=== PATIENT | female | born 1960 | race Caucasian/White ===

== ENCOUNTER 2021-03-12 01:49 | Emergency (ER) | payer OTHER ==
[~2021-03-12] VITALS: Ht 167.6 cm; Wt 57.0 kg
[2021-03-12 03:13] LABS: CLARITY,URINE SLIGHTLY CLOUDY (Clear); COLOR,URINE YELLOW (Yellow); GLUCOSE, URINE NEGATIVE (Neg); KETONES,URINE 15 mg/dl (Neg); LEUKOCYTE ESTERASE ,URINE NEGATIVE (Neg); NITRITES, URINE NEGATIVE (Neg); OCCULT BLOOD,URINE NEGATIVE (Neg); PH,URINE 5.5 (4.8-8.0); PROTEIN,URINE TRACE mg/dl (Neg)
[2021-03-12 03:20] LABS: UA COLLECTION TYPE CLN CATCH MIDSTREAM
[2021-03-12 03:26] LABS: BASOPHILS % (AUTO) 0.7 % (0-1); EOSINOPHILS # (AUTO) 0.1 X10'3 (0-0.9); HEMATOCRIT 39.6 % (35.0-45.0); HEMOGLOBIN 13.4 g/dl (12.0-16.0); LYMPHOCYTES # (AUTO) 2.9 X10'3 (1.1-4.8); LYMPHOCYTES % (AUTO) 41.4 % (21-51); MEAN CORPUSCULAR HEMOGLOBIN 30.8 PG (27.0-31.0); MEAN CORPUSCULAR HGB CONC 33.9 g/dL (33.0-36.5); MEAN CORPUSCULAR VOLUME 90.9 FL (78-98); MEAN PLATELET VOLUME 7.7 FL (7.4-10.4); MONOCYTES # (AUTO) 0.8 X10'3 (0-0.9); MONOCYTES % (AUTO) 10.9 % (2-12); NEUTROPHILS # (AUTO) 3.2 X10'3 (1.8-7.7); PLATELET COUNT 309 X10'3 (140-440); RED BLOOD COUNT 4.36 X10'6 (4.20-5.60); RED CELL DISTRIBUTION WIDTH 13.5 % (11.5-14.5)
[2021-03-12 03:27] LABS: RBC,URINE NONE SEEN /HPF (0-2); WBC,URINE 0-4 /HPF (0-4)
[2021-03-12 03:28] LABS: BACTERIA,URINE 1+ /HPF (Neg); MUCUS STRANDS MODERATE /LPF (Neg); SQUAMOUS EPITHELIAL CELL,UR MODERATE /LPF (FEW)
[2021-03-12 03:37] LABS: ALANINE AMINOTRANSFERASE 35 U/L (12-78); ALBUMIN 4.1 G/DL (3.4-5.0); ALBUMIN/GLOBULIN RATIO 1.2 (1.1-1.5); ALKALINE PHOSPHATASE 62 IU/L (46-116); ANION GAP 11 (8-16); ASPARTATE AMINO TRANSFERASE 30 U/L (10-37); BILIRUBIN,TOTAL 0.5 MG/DL (0.1-1.0); BLOOD UREA NITROGEN 8 MG/DL (7-18); BUN/CREATININE RATIO 8.7 (6.6-38.0); CALCIUM 8.8 MG/DL (8.5-10.1); CHLORIDE 102 MMOL/L (99-107); CREATININE 0.92 MG/DL (0.40-0.90); GLUCOSE 110 MG/DL (70-104); SODIUM 140 MMOL/L (135-145); TOTAL CARBON DIOXIDE 26.6 MMOL/L (24-32); TOTAL PROTEIN 7.5 G/DL (6.4-8.2); eGFR 62 ML/MIN
[2021-03-12 05:35] VITALS: BP 142/78
== END 2021-03-12 05:37 | disposition home or self-care (01) ==
LOC: ER 01:49
DX: R10.31 Right lower quadrant pain (principal); R10.32 Left lower quadrant pain; R11.2 Nausea with vomiting, unspecified; K59.00 Constipation, unspecified; K44.9 Diaphragmatic hernia without obstruction or gangrene; E87.6 Hypokalemia; I10 Essential (primary) hypertension
CPT/HCPCS: 36415; 74176; 80053; 81001; 85025; 87088; 99284

== ENCOUNTER 2021-07-23 05:32 | Day surgery (SDC) | payer OTHER ==
[2021-07-17 14:18] LABS: BASOPHILS % (AUTO) 0.2 % (0-1); EOSINOPHILS % (AUTO) 0.4 % (0-6); LYMPHOCYTES # (AUTO) 1.3 X10'3 (1.1-4.8); LYMPHOCYTES % (AUTO) 14.8 % (21-51); MEAN CORPUSCULAR HEMOGLOBIN 31.3 PG (27.0-31.0); MEAN CORPUSCULAR HGB CONC 34.1 g/dL (33.0-36.5); MONOCYTES # (AUTO) 0.6 X10'3 (0-0.9); MONOCYTES % (AUTO) 6.7 % (2-12); NEUTROPHILS # (AUTO) 6.7 X10'3 (1.8-7.7); NEUTROPHILS % (AUTO) 77.9 % (42-75); PRE OP HEMATOCRIT 39.7 % (35.0-45.0); PRE OP HEMOGLOBIN 13.5 g/dL (12.0-16.0); PRE OP PLATELET COUNT 314 X10'3 (140-440); RED BLOOD COUNT 4.31 X10'6 (4.20-5.60)
[2021-07-17 14:39] LABS: ALBUMIN 3.9 G/DL (3.4-5.0); ALBUMIN/GLOBULIN RATIO 1.1 (1.1-1.5); ALKALINE PHOSPHATASE 66 IU/L (46-116); BLOOD UREA NITROGEN 15 MG/DL (7-18); BUN/CREATININE RATIO 16.5 (6.6-38.0); CALCIUM 8.7 MG/DL (8.5-10.1); CHLORIDE 102 MMOL/L (99-107); CREATININE 0.91 MG/DL (0.40-0.90); PRE OP ALT 17 U/L (30-65); PRE OP ANION GAP 8 (8-16); PRE OP AST 13 U/L (10-37); PRE OP BILIRUB, TOTAL 0.3 MG/DL (0.0-1.0); PRE OP GLUCOSE 149 MG/DL (70-104); PRE OP SODIUM 139 MMOL/L (135-145); TOTAL CARBON DIOXIDE 29.4 MMOL/L (24-32); TOTAL PROTEIN 7.4 G/DL (6.4-8.2); eGFR 62 ML/MIN
[2021-07-17 14:45] LABS: PRE OP POTASSIUM 3.3 MMOL/L (3.4-5.1)
[2021-07-23] VITALS (9 sets, daily range): BP systolic 141–202; BP diastolic 84–113
[~2021-07-23] VITALS: Ht 167.6 cm; Wt 59.1 kg
[~2021-07-23 05:32] MED LIST: ACET-75 PO; CLON0.1T2 PO; ESCI20TA39 PO; TRAM50TA2 PO; cefazolin/dext.iso 2gm/50ml IV ONE; famotidine 20mg tablet PO ONE; ringers solution, lacted 1,000 ML IV SCH
[2021-07-23 06:28] LABS: ISTAT CREATININE 0.8 mg/dL (0.6-1.1); ISTAT HGB 13.6 g/dl (12.0-16.0); ISTAT IONIZED CALCIUM 1.18 mmol/L (1.03-1.32); ISTAT K 3.7 mmol/L (3.5-5.1); POC BUN/CREATININE RATIO 18.8 (6.6-38.0)
[2021-07-23] MEDS ORDERED: LIDOcaine 1% 30ml preserv. free vial ONE (06:49)
[2021-07-23] MEDS ORDERED: BUPIVAcaine 0.5% inj/PF 30 ML ONE (06:49)
[2021-07-23] MEDS ORDERED: midazolam 1 mg/ML 2ml injection ONE (07:25)
[2021-07-23] MEDS ORDERED: meperidine/PF 25mg/ml syringe IV PRN (07:30)
[2021-07-23] MEDS ORDERED: hydrALAZINE 20mg/ml inj. IV PRN (07:30)
[2021-07-23] MEDS ORDERED: morphine 4 MG/ML inj SYRINge IV PRN (07:30)
[2021-07-23] MEDS ORDERED: HYDROmorphone/PF 0.2 MG/ML SYRINGE IV PRN ×2 (07:30)
[2021-07-23] MEDS ORDERED: morphine 2 MG/ML inj. syringe IV PRN (07:30)
[2021-07-23] MEDS ORDERED: ondansetron/PF 4mg/2ml inj IV PRN (07:30)
[2021-07-23] MEDS ORDERED: acetaminophen 1,000mg/100ml IV 100 ML IV PRN (07:30)
[2021-07-23] MEDS ORDERED: labetalol 20mg/4ml (5mg/ml) syringe IV PRN (07:30)
[2021-07-23] MEDS ORDERED: ringers solution, lacted 1,000 ML IV SCH (07:30)
[2021-07-23] MEDS ORDERED: proCHLORperazine 10 MG/2 ml inj IV PRN (07:30)
[2021-07-23] MEDS ORDERED: sevoflurane 250ml liquid IH ONE (07:57)
[2021-07-23] MEDS ORDERED: dexamethasone sod phosphate 10mg/ml inj ONE (07:57)
[2021-07-23] MEDS ORDERED: fentaNYL /PF 50mcg/ml 5ml ampule ONE (08:08)
[2021-07-23] MEDS ORDERED: rocuronium 10mg/ml inj IV ONE (08:27)
[2021-07-23] MEDS ORDERED: LIDOcaine 2% (20mg/ml) 5ml vial ONE (08:27)
[2021-07-23] MEDS ORDERED: propofol inj 20 ML IV ONE (08:27)
[2021-07-23] MEDS ORDERED: ondansetron/PF 4mg/2ml inj ONE (08:27)
[2021-07-23] MEDS ORDERED: labetalol 20mg/4ml (5mg/ml) syringe IV ONE (08:38)
[2021-07-23] MEDS ORDERED: BUPIVAcaine 0.5% inj/PF 30 ml vial IJ ONE (08:44)
[2021-07-23] MEDS ORDERED: neostigmine methylsulfate 1 MG/ML 10ml vial ONE (09:22)
[2021-07-23] MEDS ORDERED: glycopyrrolate 0.2mg/ml inj ONE (09:22)
--- NOTE | 2021-07-23 09:40 | NUR ---
PT ARRIVED TO VIA GURNEY ACCOMPANIED BY DR. ROCK-ANESTHESIA, REPORT GIVEN, PT AWAKE, VSS-BP ELEVATED, PT HAS HX OF HTN-DID NOT TAKE BP MEDS THIS AM, WILL MONITOR, PIV 20G TO RUE-LR RUNNING AT 100ML/HR, LAP SITES X 3 WITH BANDAID-CDI, SCDS ON, DENIES PAIN.
[2021-07-23] MEDS ORDERED: oxyCODONE/APAP 5-325mg tablet PO PRN (09:45)
--- NOTE | 2021-07-23 11:00 | NUR ---
PT UP GETTING DRESSED-TOLERATED WELL, PAIN WELL CONTROLLED WITH MEDS 10/31- I PERCOCET GIVEN, PIV D/CD-CANULA INTACT, SCDS OFF, LAP SITES X 3-CDI, VSS, D/C INSTRUCTIONS GIVEN TO PT-ALL QUESTIONS ANSWERED, PT TAKEN WITH ALL BELONGINGS TO FAMILY CAR VIA W/C, GIVEN RIDE BY FAMILY Addendum: 07/23/21 at 1119 by Herminia Solo RN Amended: Links added.
== END 2021-07-23 11:00 | disposition home or self-care (01) ==
LOC: PAS 05:32
PROVIDERS: ATTEND Surgery
DX: K40.20 Bilateral inguinal hernia, without obstruction or gangrene, not specified as recurrent (principal); K41.20 Bilateral femoral hernia, without obstruction or gangrene, not specified as recurrent; I10 Essential (primary) hypertension; F41.9 Anxiety disorder, unspecified; Z98.890 Other specified postprocedural states; Z79.899 Other long term (current) drug therapy; Z72.89 Other problems related to lifestyle; Z20.822 Contact with and (suspected) exposure to COVID-19; Z82.49 Family history of ischemic heart disease and other diseases of the circulatory system; Z83.3 Family history of diabetes mellitus; Z82.3 Family history of stroke; Z81.8 Family history of other mental and behavioral disorders
CPT/HCPCS: 36415; 49650; 80047; 80053; 82948; 85025; 93005; C1781; J0131; J2001; J2175; J2250; J2270; J2405; J2704; J2710; J3010; U0003; U0005; Z7506; Z7508; Z7512; A4215; A4618; J0690; J1100; J3490; J7120; S0020

== ENCOUNTER 2025-01-22 12:56 | Emergency (ER) | payer MEDICARE, OTHER ==
[~2025-01-22] VITALS: Ht 167.6 cm; Wt 60.6 kg
[~2025-01-22 12:56] MED LIST changes: -TRAM50TA2 PO; -cefazolin/dext.iso 2gm/50ml IV ONE; -famotidine 20mg tablet PO ONE; -ringers solution, lacted 1,000 ML IV SCH
[2025-01-22 13:08] VITALS: TEMP 98.8
--- NOTE | 2025-01-22 13:23 | Physician Documentation ---
History of Present Illness ~ Chief Complaint: Anxiety Stated Complaint: GENERAL ILLNESS Time Seen by MD: 13:05 OK to notify your PCP?: Yes Source: patient, RN/MD, RN notes reviewed, old records Mode of Arrival: POV Exam Limitations: no limitations HPI This patient is a 64 y/o female who presents to ED with chief complaint of anxiety. Patient states that recently she has been having nightmares, and waking up in cold seats. Patient states recent emotional triggers including recently being placed on leave from her job for an injury, which has been frustrating. Patient notes that she has had similar symptoms in the past but they have been significantly worse today. Patient notes she was recently prescribed Baclofen for her injury, however states that when she obtained this prescription, she had fleeting thoughts of taking all the pills in the bottle at once. She does have some intermittent shortness of breath which she describes as feeling as if she has a lump in her throat. Denies any chest pain. Patient denies any other associated symptoms at this time. Patient denies any other alleviating or exacerbating factors. Medication Reconciliation Allergies: Coded Allergies: No Known Allergies (Unverified , 03/12/21) Scheduled Acetaminophen (Acetaminophen), 1 TAB PO QID, (Reported) Clonidine HCl (Clonidine HCl), 2 TAB PO BID, (Reported) Escitalopram Oxalate (Escitalopram Oxalate), 1 TAB PO DAILY, (Reported) Past Medical History Past Medical History: Hypertension, Anxiety Past Surgical History: noncontributory Smoking Status: Unknown if ever smoked Alcohol Use: None Drug Use: none Review of Systems All Other Systems at this time: Reviewed and Negative Physical Exam Vital Signs: RN Vital Signs have been reviewed: Yes, Temperature: 98.8, Source: Oral, Heart Rate: 98, Respiratory Rate: 24, BP: 198/99, Pulse Oximetry: 100, Weight: 60.600 Physical Exam General: The patient is well developed, well nourished, nontoxic appearing and is in no acute distress. Skin: [place], warm and dry with no rashes. HEENT: Head was normocephalic and atraumatic. Eyes - pupils equal, round, reactive to light and accommodation. Extraocular movements were intact. Conjunctivae were nonicteric. The mouth and oropharynx were clear with moist mucous membranes. There were no pharyngeal exudates or erythema. Neck: Supple and nontender. There was no jugular venous distention, lymphadenopathy, thyromegaly or masses. Chest: Clear to auscultation bilaterally without wheezes, rales or rhonchi. No accessory muscle use. No dullness to percussion. Heart: Rate regular and rhythmic. S1, S2. No murmurs. Palpation of the chest wall was normal. No rubs or thrills. Abdomen: Soft, nontender and nondistended. Positive bowel sounds. No guarding o r rebound. No hepatosplenomegaly or palpable masses. Extremities: No cyanosis, clubbing or edema. The patient moves all extr emities. Pulses were equal and symmetric. Neurologic: Cranial nerves II-XII were intact. Sensation was intact to light touch throughout. Motor strength was 5/5 in all four extremities. Deep tendon reflexes were intact in both upper and lower extremities. Psychologic: Patient tearful with disorganized thoughts. The patient was otherwise oriented to person, place and time. The patient demonstrated appropriate judgement and insight. Progress Progress Note RECORD REVIEW: Patient was last seen here on March 12, 2021 for unrelated visit of abdominal pain. Results/Orders Reviewed/noted all lab results: Yes Results/Orders Orders - DANISH HAJI MD Electrocardiogram (01/22/25 13:06) Completed Orders - DANISH HAJI MD Cbc/Diff (01/22/25 13:06) Ethanol (01/22/25 13:06) MG (01/22/25 13:06) Electrocardiogram (01/22/25 13:06) Drug Screen, Urine (01/22/25 13:06) BMP (01/22/25 13:06) Hs Troponin I W Calculations (01/22/25 13:06) Hydroxyzine Tablet (Atarax Tablet) (01/22/25 14:28) Ua W/Microscopic, Cult If Ind (01/22/25 15:33) Medications Received in ER Medications (Trade) Dose Ordered Sig/[place] Route PRN Reason Start Time Stop Time Status Last Admin Dose Admin (Atarax tablet) 25 mg ONCE STAT PO 01/22/25 14:28 01/22/25 14:32 DC 01/22/25 14:38 25 MG Vital Signs 01/22/25 01/22/25 01/22/25 01/22/25 13:08 14:20 14:42 16:36 Temp 98.8 Pulse 98 80 89 Resp 24 17 17 19 B/P (MAP) 198/99 188/90 (122) 176/98 Pulse Ox 100 96 98 O2 Flow Rate 0 Laboratory Tests Test 01/22/25 13:55 01/22/25 15:33 White Blood Count 10.7 Red Blood Count 4.85 Hemoglobin 14.1 Hematocrit 42.6 Mean Corpuscular Volume 87.8 Mean Corpuscular Hemoglobin 29.1 Mean Corpuscular Hemoglobin Concent 33.1 Red Cell Distribution Width 13.6 Platelet Count 326 Mean Platelet Volume 8.3 Neutrophils (%) (Auto) 62.8 Lymphocytes (%) (Auto) 25.4 Monocytes (%) (Auto) 10.5 Eosinophils (%) (Auto) 0.7 Basophils (%) (Auto) 0.6 Neutrophils # (Auto) 6.7 Lymphocytes # (Auto) 2.7 Monocytes # (Auto) 1.1 H Eosinophils # (Auto) 0.1 Basophils # (Auto) 0.1 CBC Comment Sodium Level 141 Potassium Level 4.3 Chloride Level 107 Carbon Dioxide Level 26.6 Anion Gap 7 L Blood Urea Nitrogen 14 Creatinine 0.71 Estimated GFR/1.73 m2 82 BUN/Creatinine Ratio 19.7 Glucose Level 86 Calcium Level 9.2 Magnesium Level 2.5 H Troponin I High Sensitivity 17 Albumin 3.5 Chemistry Comments Ethyl Alcohol Level < 10 Urine Specimen Description Cln catch midstream Urine Color Straw Urine Clarity Clear Urine pH 6.5 Urine Specific [place] <=1.005 Urine Protein Negative Urine Glucose (UA) Negative Urine Ketones Negative Urine Occult Blood Trace-intact Urine Nitrite Negative Urine Bilirubin Negative Urine Urobilinogen 0.2 Urine Leukocyte Esterase Negative Urine RBC 0-2 Urine WBC 0-4 Urine Squamous Epithelial Cells Few Urine Transitional Epithelial Cells Few Urine Bacteria Few Urine Mucus Few Urine Culture Indicated Not ind Volume Urine Centrifuged 10 ml Urine Comment Urine Opiates Screen Negative Urine Methadone Screen Negative Urine Fentanyl Screen Negative Urine Barbiturates Screen Negative Urine Phencyclidine Screen Negative Urine Amphetamines Screen Negative Urine Benzodiazepines Screen Negative Urine Cocaine Screen Negative Urine Cannabinoids Screen Positive Drug Screen Comment Re-Evaluation Re-Evaluation : Re-Evaluation: Improved Progress Patient was seen and examined. Patient was given reassurance. Patient was medically cleared had no acute medical emergency to explain her weakness fatigue and generalized symptoms. Patient denied any suicidal plan. She has been taking baclofen for anxiety which may be making her a bit more confused and agitated. Patient was told not to take that medication she became very angry when she thought those medications were taken. At time of discharge patient then became angry stating that she is suicidal a came abusive to staff yelling aggressive police were called and was removed from the property. Patient was then given reassurance but she was ignoring all instructions discussed the case with family regarding her need to be on mood stabilizers for potential depression but also not to be taking baclofen. Patient was then medically cleared for detention if indicated. To note patient was given full disclosure of her workup laboratory results treating physician's name multiple times EKG/XRAY/CT/US/VASC/MRI EKG : Additional Comment Patient: TYREE CRESPO Medical Record: [id number] [facility] : 1960, Age: 64Sex: F Location: ER Patient Status: REG ER Service Date/Time: Ordering Physician: DANISH HAJI MD Exam Name: ELECTROCARDIOGRAM Technologist: [facility] Test Date: 2025-01-22 Test Time: 13:32:02 Pat Name: TYREE CERSPO Department: [facility]-ER Patient ID: [facility]-[id number] Room: Gender: F Coordinating Producer: : 1960 Requested By: DANISH HAJI Order Number: [id number] Reading MD: Trever Mendez Measurements Intervals [place] Rate: 80 P: 33 CO: 154 QRS: -3 QRSD: 89 T: 23 QT: 367 QTc: 424 Interpretive Statements Sinus rhythm Low voltage, precordial leads Artifact in lead(s) V3 and baseline wander in lead(s) V3 Electronically Signed On 01-22-2025 15:12:30 PDT by Trever Mendez Please click the below link to view image of tracing. EKG Date and Time:01/22/25 1332 Electronically Signed by: TREVER MENDEZ MD Date and Time: 01/22/25 1512 NO PRIMARY CARE PROVIDER~ cc: ~ Medical Decision Making Additional info obtained from: old records Differential Dx:Considerations: Include: Alcohol abuse, Anxiety, Bipolar disorder, Conversion disorder, Depression, Encephaloathy, Panic disorder, Personality disorder, Schizophrenia, Substance abuse, Suicidal, Other Departure Time of Disposition: 16:58 Disposition: 01 HOME / SELF CARE / HOMELESS Impression: Primary Impression: Anxiety Additional Impression: General medical exam Condition: Stable Discharge Instructions: Panic Attack Additional Instructions: Patient is medically cleared for detention. Referrals: NO PRIMARY CARE PROVIDER (PCP) Education Educated: Patient Educated regarding: diagnosis, prognosis, need for follow up, other Signature Scribe Signature: No scribed Attestation: The note accurately reflects work and decisions made by me.Danish Haji MD 01/22/25 19:59 DANISH HAJI MD Jan 22, 2025 13:23
--- NOTE | 2025-01-22 13:34 | ELECTROCARDIOGRAPH REPORT ---
[facility] Test Date: 2025-01-22 Test Time: 13:32:02 Pat Name: TYREE CRESPO Department: [facility]- Patient ID: [facility]-[id number] Room: Gender: F School Psychologist: : 1960 Requested By: KRISTI VILLALBA Order Number: [id number] Reading MD: Trever Chisholm Measurements Intervals [place] Rate: 80 P: 33 [place]: 154 QRS: -3 QRSD: 89 T: 23 QT: 367 QTc: 424 Interpretive Statements Sinus rhythm Low voltage, precordial leads Artifact in lead(s) V3 and baseline wander in lead(s) V3 Electronically Signed On 01-22-2025 15:12:30 PDT by Trever Chisholm Please click the below link to view image of tracing.
[2025-01-22] MEDS: hydrOXYzine 25 MG tablet PO STA (14:38)
[2025-01-22 15:02] LABS: BASOPHILS # (AUTO) 0.1 X10'3 (0-0.2); BASOPHILS % (AUTO) 0.6 % (0-1); EOSINOPHILS # (AUTO) 0.1 X10'3 (0-0.9); EOSINOPHILS % (AUTO) 0.7 % (0-6); HEMATOCRIT 42.6 % (35.0-45.0); HEMOGLOBIN 14.1 g/dl (12.0-16.0); LYMPHOCYTES # (AUTO) 2.7 X10'3 (1.1-4.8); LYMPHOCYTES % (AUTO) 25.4 % (21-51); MEAN CORPUSCULAR HEMOGLOBIN 29.1 PG (27.0-31.0); MEAN CORPUSCULAR HGB CONC 33.1 g/dL (33.0-36.5); MEAN CORPUSCULAR VOLUME 87.8 FL (78-98); MEAN PLATELET VOLUME 8.3 FL (7.4-10.4); MONOCYTES # (AUTO) 1.1 X10'3 (0-0.9); MONOCYTES % (AUTO) 10.5 % (2-12); NEUTROPHILS # (AUTO) 6.7 X10'3 (1.8-7.7); NEUTROPHILS % (AUTO) 62.8 % (42-75); PLATELET COUNT 326 X10'3 (140-440); RED BLOOD COUNT 4.85 X10'6 (4.20-5.60); RED CELL DISTRIBUTION WIDTH 13.6 % (11.5-14.5); WHITE BLOOD COUNT 10.7 X10'3 (4.5-11.0)
[2025-01-22 15:15] LABS: ALBUMIN 3.5 G/DL (3.4-5.0); ANION GAP 7 (8-16); BLOOD UREA NITROGEN 14 MG/DL (7-18); BUN/CREATININE RATIO 19.7 (10.0-20.0); CALCIUM 9.2 MG/DL (8.5-10.1); CHLORIDE 107 MMOL/L (99-107); CREATININE 0.71 MG/DL (0.40-0.90); GLUCOSE 86 MG/DL (70-104); MAGNESIUM 2.5 MG/DL (1.5-2.4); SODIUM 141 MMOL/L (135-145); TOTAL CARBON DIOXIDE 26.6 MMOL/L (24-32); eCRCL 73 ML/MIN; eGFR 82 ML/MIN
[2025-01-22 15:19] LABS: POTASSIUM 4.3 MMOL/L (3.5-5.1)
[2025-01-22 15:20] LABS: ETHANOL < 10 MG/DL (<10)
[2025-01-22 15:58] LABS: URINE AMPHETAMINE SCREEN NEGATIVE (Neg); URINE BARBITUATE SCREEN NEGATIVE (Neg); URINE BENZODIAZEPINES SCREEN NEGATIVE (Neg); URINE CANNABINOID SCREEN POSITIVE (Neg); URINE COCAINE SCREEN NEGATIVE (Neg); URINE METHADONE SCREEN NEGATIVE (Neg); URINE OPIATE SCREEN NEGATIVE (Neg); URINE PHENCYCLIDINE SCREEN NEGATIVE (Neg)
[2025-01-22 16:13] LABS: BILIRUBIN,URINE NEGATIVE (Neg); CLARITY,URINE CLEAR (Clear); COLOR,URINE STRAW (Yellow); GLUCOSE, URINE NEGATIVE (Neg); KETONES,URINE NEGATIVE (Neg); LEUKOCYTE ESTERASE ,URINE NEGATIVE (Neg); NITRITES, URINE NEGATIVE (Neg); OCCULT BLOOD,URINE TRACE-INTACT (Neg); PH,URINE 6.5 (4.8-8.0); PROTEIN,URINE NEGATIVE (Neg); UROBILINOGEN,URINE 0.2 E.U/dL (0.2-1.0)
[2025-01-22 16:21] LABS: UA COLLECTION TYPE CLN CATCH MIDSTREAM
[2025-01-22 16:23] LABS: BACTERIA,URINE FEW /HPF (Neg); MUCUS STRANDS FEW /LPF (Neg); RBC,URINE 0-2 /HPF (0-2); SQUAMOUS EPITHELIAL CELL,UR FEW /LPF (FEW); TRANSITIONAL EPI CELLS,URINE FEW /HPF; WBC,URINE 0-4 /HPF (0-4)
[2025-01-22 16:36] VITALS: BP 176/98; PULSE 89; RESP 19; O2SAT 98
== END 2025-01-22 16:38 | disposition home or self-care (01) ==
LOC: ER 12:57
DX: F41.9 Anxiety disorder, unspecified (principal); Z00.8 Encounter for other general examination; I10 Essential (primary) hypertension
CPT/HCPCS: 36415; 80048; 80305; 81001; 83735; 84484; 85025; 93005; 99284; G0480; Q0177; 80320